=== PATIENT | male | born 1965 | race Caucasian/White ===

== ENCOUNTER 2020-08-17 13:28 | Emergency (ER) | payer BC ==
[~2020-08-17] VITALS: Ht 180.3 cm; Wt 119.8 kg
[2020-08-17] MEDS ORDERED: SIMVASTATIN20 MG PO (13:55)
[2020-08-17] MEDS ORDERED: KEFLEX500 MG PO (15:09)
== END 2020-08-17 15:25 | disposition home or self-care (01) ==
LOC: ED 13:28
DX: S56.422A Laceration of extensor muscle, fascia and tendon of left index finger at forearm level, initial encounter (principal); W26.0XXA Contact with knife, initial encounter; Z79.899 Other long term (current) drug therapy
CPT/HCPCS: 12002; 99282-25